=== PATIENT | male | born 1970 | race Caucasian/White ===

== ENCOUNTER → 2020-05-16 | Outpatient (CLI) | payer BC, OTHER ==
[~2020-05-16] MED LIST: ASPIR 8181 MG PO; CYCLOBENZAPRINE10 MG PO; FLAGYL500 MG PO; IBUPROFEN600 MG PO; LEVAQUIN500 MG PO; LISINOPRIL-HCT1 EAC1 PO; NORCO 5-325 TA1 EACH PO; PRILOSEC OTC20 MG PO; TYLENOL 325MG325 MG PO
== END ==
LOC: KOH-I 08:24
DX: M51.36 Other intervertebral disc degeneration, lumbar region (principal); M48.061 Spinal stenosis, lumbar region without neurogenic claudication; M51.26 Other intervertebral disc displacement, lumbar region; M48.07 Spinal stenosis, lumbosacral region
CPT/HCPCS: 72148

== ENCOUNTER 2021-10-03 00:45 | Emergency (ER) | payer SELFPAY ==
[~2021-10-03 00:45] MED LIST changes: -TORADOL 10 MG T10 MG PO
[2021-10-03] MEDS ORDERED: CYCLOBENZAPRINE10 MG PO (03:20)
[2021-10-03] MEDS ORDERED: TORADOL 10 MG T10 MG PO (03:20)
== END 2021-10-03 03:28 | disposition home or self-care (01) ==
LOC: ER1 00:45
DX: S39.012A Strain of muscle, fascia and tendon of lower back, initial encounter (principal); I10 Essential (primary) hypertension; F17.200 Nicotine dependence, unspecified, uncomplicated; X58.XXXA Exposure to other specified factors, initial encounter
CPT/HCPCS: 96374; 96375; 99283; J1100; J1885; J2060; J2270; J2405

== ENCOUNTER → 2021-10-03 | Outpatient (CLI) | payer OTHER ==
[~2021-10-03] MED LIST changes: +TORADOL 10 MG T10 MG PO
== END ==
LOC: KOH-I 14:13
DX: M54.50 Low back pain, unspecified (principal); M51.36 Other intervertebral disc degeneration, lumbar region
CPT/HCPCS: 72100

== ENCOUNTER → 2022-01-25 | Outpatient (CLI) | payer BC ==
[~2022-01-25] MED LIST changes: +TORADOL 10 MG T10 MG PO
[2022-01-25 07:59] LABS: HEMOGLOBIN 15.9 gm/dl (14.0-17.5); RED BLOOD COUNT 5.03 M/UL (4.20-5.50); WHITE BLOOD COUNT 11.2 K/UL (4.5-11.0)
[2022-01-25 08:20] LABS: BUN/CREATININE RATIO 16 (0-10)
== END ==
LOC: LAB 07:36
PROVIDERS: Nurse Practitioner Family
DX: E78.5 Hyperlipidemia, unspecified (principal)
CPT/HCPCS: 36415; 80053; 80061; 85025